=== PATIENT | female | born 1965 | race Two or more races ===

== ENCOUNTER 2023-07-24 16:18 | Emergency (ER) | payer MEDICAID, OTHER ==
[~2023-07-24] VITALS: Ht 165.1 cm; Wt 138.0 kg
[2023-07-24] MEDS ORDERED: IBUP-1455 PO (19:43)
[2023-07-24] MEDS ORDERED: DexAMETHasone SOD PHOS 10MG/1ML VIAL INJ IM ONE (19:45)
[2023-07-24] MEDS ORDERED: KETOROLAC TROMETH 60MG/2ML VIAL IM ONE (19:45)
[2023-07-24 20:19] VITALS: BP 157/82; PULSE 73; RESP 17; TEMP 98; O2SAT 97
== END 2023-07-24 20:30 | disposition home or self-care (01) ==
LOC: ER 16:18
DX: S53.401A Unspecified sprain of right elbow, initial encounter (principal); I10 Essential (primary) hypertension; Z88.2 Allergy status to sulfonamides; Z88.5 Allergy status to narcotic agent; W01.0XXA Fall on same level from slipping, tripping and stumbling without subsequent striking against object, initial encounter; Y93.89 Activity, other specified; Y92.89 Other specified places as the place of occurrence of the external cause; Y99.8 Other external cause status
CPT/HCPCS: 73080; 73090; 96372; 99284; J1100; J1885